=== PATIENT | male | born 1980 | race Caucasian/White ===

== ENCOUNTER 2022-06-02 18:25 | Outpatient (REF) | payer MEDICAID, SELFPAY ==
[2022-06-02 21:22] LABS: ALT 28 U/L (16-63); AST 25 U/L (15-37); Albumin 3.9 g/dL (3.4-5.0); Alkaline Phosphatase 71 U/L (46-116); Anion Gap 7.5 mmol/L (3-11); BUN 21 mg/dL (7-18); Bilirubin, Total 0.3 mg/dL (0.2-1.0); CO2 29.5 mmol/L (21.0-32.0); CREATININE 0.9 mg/dL (0.70-1.30); Calcium 8.8 mg/dL (8.5-10.1); Calculated LDL 129 mg/dL (<100); Chloride 104 mmol/L (98-107); Cholesterol 195 mg/dL (<200); Estimated GFR 110.73 (mL/min/1.73m2); Glucose 107 mg/dL (74-106); HDL Cholesterol 48 mg/dL (40-60); Potassium 3.7 mmol/L (3.5-5.1); Sodium 141 mmol/L (136-145); TSH (W/Ref FT4) 0.76 uIU/mL (0.36-3.74); Total Protein 6.9 g/dL (6.4-8.2); Triglyceride 94 mg/dL (<150)
[2022-06-04 09:28] LABS: Hepatitis C Ab w Rflx HCV PCR Negative (Negative)
[2022-06-04 09:39] LABS: HIV-1/2 Ag & Ab Screen Negative (Negative)
== END 2022-06-02 18:26 | disposition home or self-care (01) ==
LOC: NCHCN 18:25
PROVIDERS: Visit Provider Nurse Practitioner Family
DX: R13.10 Dysphagia, unspecified (principal); Z13.220 Encounter for screening for lipoid disorders; Z11.3 Encounter for screening for infections with a predominantly sexual mode of transmission; Z82.49 Family history of ischemic heart disease and other diseases of the circulatory system; Z11.4 Encounter for screening for human immunodeficiency virus [HIV]; Z11.59 Encounter for screening for other viral diseases
CPT/HCPCS: 80053; 80061; 86803; 87389; 84443

== ENCOUNTER 2025-04-30 20:45 | Outpatient (REF) | payer BC, SELFPAY ==
[2025-04-30 21:05] LABS: HCT 40.5 % (40.0-50.0); HGB 14.0 g/dL (13.5-17.5); MCH 29.9 pg (27.0-33.0); MCHC 34.6 % (32.0-36.0); MCV 86 fL (80-95); MPV 9.7 fL (8.0-11.0); Platelet Count 264 10^3/uL (130-400); RBC 4.69 10^6/uL (4.36-5.78); RDW 12.1 % (11.8-14.1); RDW-SD 38.2 fL; WBC 5.39 10^3/uL (4.4-10.8)
[2025-04-30 21:30] LABS: D-Dimer 232 ng/mlFEU (<500)
== END 2025-04-30 20:46 | disposition home or self-care (01) ==
LOC: NCHCN 20:45
PROVIDERS: Visit Provider Nurse Practitioner Family
DX: M79.89 Other specified soft tissue disorders (principal)
CPT/HCPCS: 85027; 85379